=== PATIENT | male | born 2000 | race African-American/Black ===

== ENCOUNTER 2023-02-28 17:35 | Emergency (ER) | payer MEDICAID ==
--- NOTE | 2023-02-28 18:47 | ED Physician Documentation ---
PD HPI CHEST PAIN - Stated complaint Stated Complaint: CP/LT HIP PX - Chief complaint Chief Complaint: Cardiac - History obtained from History obtained from: Patient - Additional information Additional information: 23-year-old male with complex past medical history and overall very poor historian presents to the emergency department today for crushing chest pain. He is here with his brother who recently moved in with and his brother is not familiar with his past medical history. Patient hands me his phone with a DNA SEQ amalia and is able to find that patient has Crohn's disease he was on Humira and got cardiomyopathy after being on Humira for his Crohn's disease. His ejection fraction is about 30 to 35%. He is post to be on Entresto and metoprolol patient says he is on 1 of these heart medications but he does not remember which one. Now he feels like his chest pain has fully resolved but he said while his chest pain was happening he was having dizziness with increased generalized weakness. Per patient's brother since he is recently moved in with him they have been having more alcohol than normal lately patient denies any IV drug use or history of drug use. No recent fevers or chills no signs or symptoms of upper respiratory infection. PD PAST MEDICAL HISTORY - Past Medical History Past Medical History: Yes Cardiovascular: Other (Cardiomyopathy) Respiratory: None Neuro: None GI: Crohn's disease : None HEENT: Chronic hearing loss Psych: None Musculoskeletal: Other Derm: Eczema - Past Surgical History Past Surgical History: Yes General: Other - Present Medications Home Medications: Ambulatory Orders Medication Instructions Recorded Confirmed Budesonide [Budesonide EC] 3 mg PO DAILY 02/28/23 02/28/23 Metoprolol Succinate [Toprol Xl] 25 mg PO DAILY 02/28/23 02/28/23 - Allergies Allergies/Adverse Reactions: Allergies Allergy/AdvReac Type Severity Reaction Status Date / Time No Known Drug Allergies Allergy Verified 02/28/23 17:48 - Social History Does the pt smoke?: Yes Smoking Status: Current every day smoker Does the pt drink ETOH?: No Does the pt have substance abuse?: No - Immunizations Immunizations are current?: No - POLST Patient has POLST: No PD ED PE NORMAL - Vitals Vital signs reviewed: Yes - General General: Alert and oriented X 3 - HEENT HEENT: Other (Chronic hard of hearing) - Neck Neck: No JVD - Cardiac Cardiac: RRR, No murmur, Strong equal pulses - Respiratory Respiratory: No respiratory distress, Clear bilaterally - Abdomen Abdomen: Normal bowel sounds, Non tender, Non distended - Extremities Extremities: No deformity, No tenderness to palpate, No edema, No calf tenderness / cord - Neuro Neuro: Alert and oriented X 3 - Psych Psych: Normal mood Results - Vitals Vitals: Vital Signs - 24 hr 02/28/23 02/28/23 02/28/23 17:45 18:55 20:50 Temperature 36.8 C Heart Rate 100 96 54 L Respiratory 24 18 16 Rate Blood Pressure 136/85 H 135/74 H 121/73 O2 Saturation 100 98 100 02/28/23 22:01 Temperature Heart Rate 76 Respiratory 20 Rate Blood Pressure 130/72 O2 Saturation 99 Oxygen O2 Source Room air - EKG (time done) 1743 EKG releavant findings:: EKG personally interpreted by author of this note. Relevant findings are: Rate: Rate (enter#) (97) Rhythm: NSR [place]: Normal Intervals: Normal [place] QRS: Normal, LVH Ischemia: Normal ST segments Computer interpretation: Agree with computer - Labs Labs: Laboratory Tests 02/28/23 02/28/23 02/28/23 17:43 17:43 17:43 WBC 10.1 RBC 4.91 Hgb 13.3 L Hct 42.3 MCV 86.2 MCH 27.1 MCHC 31.4 L RDW 14.5 Plt Count 451 H MPV 11.0 Neut # (Auto) 6.1 Lymph # (Auto) 2.6 [place] # (Auto) 1.1 H Eos # (Auto) 0.2 Baso # (Auto) 0.1 Absolute Nucleated RBC 0.00 Nucleated RBC % 0.0 Sodium 136 Potassium 3.5 Chloride 100 L Carbon Dioxide 24 Anion Gap 12.0 BUN 9 Creatinine 0.7 Estimated GFR (MDRD) 168 Glucose 75 Calcium 9.6 Total Bilirubin 1.1 H AST 15 ALT 11 Alkaline Phosphatase 86 Troponin I High Sens 3.4 Total Protein 8.0 Albumin 3.9 Globulin 4.1 Albumin/Globulin Ratio 1.0 02/28/23 21:21 WBC RBC Hgb Hct MCV MCH MCHC RDW Plt Count MPV Neut # (Auto) Lymph # (Auto) [place] # (Auto) Eos # (Auto) Baso # (Auto) Absolute Nucleated RBC Nucleated RBC % Sodium Potassium Chloride Carbon Dioxide Anion Gap BUN Creatinine Estimated GFR (MDRD) Glucose Calcium Total Bilirubin AST ALT Alkaline Phosphatase Troponin I High Sens 3.1 Total Protein Albumin Globulin Albumin/Globulin Ratio - Rads (name of study) Chest x-ray Relevant Findings:: Final report received, EMP independent interpretation of test (No cardiomegaly no acute abnormalities) PD Medical Decision Making - ED course ED course: 23-year-old male here with chest pain and overall very poor historian Exam without evidence of volume overload so doubt heart failure. EKG without signs of active ischemia. Given the timing of pain to ER presentation, delta troponin was negative so doubt NSTEMI. Presentation not consistent with acute PE (PERC negative), pneumothorax (not visualized on chest xr), thoracic aortic dissection, pericarditis, tamponade, pneumonia (no infectious symptoms, clear chest xr), myocarditis (no recent illness, neg trop). HEART score:3 points discharge patient And plan to follow-up with primary care provider. Patient is recently moved to this area from [place] he is well-established with care there but he was told the importance of getting a primary care provider here with his past medical history. He was given a list of primary care providers to establish care with outpatient. He was given very strict return precautions. Departure - Departure Disposition: 01 Home, Self Care Clinical Impression: Chest pain Qualifiers: Chest pain type: unspecified Qualified Code(s): R07.9 - Chest pain, unspecified Condition: Good Instructions: ED Chest Pain Atypical Unkn Cause Comments: Chest x-ray complete does not see any thank you for trusting us with your care. We were not able to identify the source or cause of why you are experiencing this chest pain earlier. I would make sure that you are able to establish care with a primary care provider soon as possible given your complex past medical history. Please come back to the emergency department immediately if this chest pain starts to come back, if you start to experience any dizziness, shortness of breath, or any other concerning symptoms. We have monitored you here now for 4 hours and chest pain did not return. But like I said if you have any other concerning symptoms or that if the chest pain starts back up again come back to the emergency department immediately. Forms: PCP List Discharge Date/Time: 02/28/23 22:01
[2023-02-28 19:19] LABS: BASOPHILS # (AUTO) 0.1 10^3/uL (0.0-0.1); BASOPHILS % (AUTO) 0.6 %; EOSINOPHILS # (AUTO) 0.2 10^3/uL (0.0-0.7); EOSINOPHILS % (AUTO) 2.4 %; HCT - HEMATOCRIT 42.3 % (42.0-52.0); HGB - HEMOGLOBIN 13.3 g/dL (14.0-18.0); LYMPHOCYTES # (AUTO) 2.6 10^3/uL (1.5-3.5); LYMPHOCYTES % (AUTO) 25.4 %; MEAN CORPUSCULAR HEMOGLOBIN 27.1 pg (27.0-31.0); MEAN CORPUSCULAR HGB CONC 31.4 g/dL (32.0-36.0); MEAN CORPUSCULAR VOLUME 86.2 fL (80.0-94.0); MONOCYTES # (AUTO) 1.1 10^3/uL (0.0-1.0); MONOCYTES % (AUTO) 11.2 %; NEUTROPHILS # (AUTO) 6.1 10^3/uL (1.5-6.6); NEUTROPHILS % (AUTO) 60.2 %; PLT - PLATELET COUNT 451 10^3/uL (130-450); RED BLOOD COUNT 4.91 10^6/uL (4.70-6.10); RED CELL DISTRIBUTION WIDTH 14.5 % (12.0-15.0); WHITE BLOOD COUNT 10.1 x10^3/uL (4.8-10.8)
[2023-02-28 19:36] LABS: ALBUMIN 3.9 g/dL (3.2-5.5); BILIRUBIN,TOTAL 1.1 mg/dL (0.2-1.0); CALCIUM 9.6 mg/dL (8.5-10.3); CREATININE 0.7 mg/dL (0.6-1.3); POTASSIUM 3.5 mmol/L (3.5-4.5)
--- NOTE | 2023-02-28 19:49 | XRAY Report ---
PROCEDURE: Chest 2V INDICATIONS: chest pain TECHNIQUE: 2 views of the chest were acquired. COMPARISON: None. FINDINGS: Surgical changes and devices: None. Lungs and pleura: No pleural effusions or pneumothorax. Lungs are clear. Mediastinum: Mediastinal contours appear normal. Heart size is normal. Bones and chest wall: No suspicious bony lesions. Overlying soft tissues appear unremarkable. IMPRESSION: No acute cardiopulmonary process. Reviewed by: Abeba Hamilton MD on 02/28/2023 7:48 PM PST Approved by: Abeba Hamilton MD on 02/28/2023 7:48 PM PST Station ID: [id number]
[2023-02-28 22:10] VITALS: BP 130/72; O2SAT 99
== END 2023-02-28 22:01 | disposition home or self-care (01) ==
LOC: ED 17:35
DX: R07.89 Other chest pain (principal); I42.9 Cardiomyopathy, unspecified; F17.200 Nicotine dependence, unspecified, uncomplicated; Z79.899 Other long term (current) drug therapy
CPT/HCPCS: 36415; 80048; 80053; 84484; 85025; 93005; 99283; 99284